=== PATIENT | male | born 1985 | race Caucasian/White ===

== ENCOUNTER 2016-12-15 15:22 | Emergency (ER) | payer SELFPAY ==
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
[2016-12-15] MEDS ORDERED: MORPHINE SULFATE 10 MG/ML INJ IV ONE (15:57)
[2016-12-15 16:51] VITALS: BP 131/65
== END 2016-12-15 16:42 | disposition home or self-care (01) ==
LOC: ER 15:22
DX: S52.502A Unspecified fracture of the lower end of left radius, initial encounter for closed fracture (principal); F17.200 Nicotine dependence, unspecified, uncomplicated; V86.99XA Unspecified occupant of other special all-terrain or other off-road motor vehicle injured in nontraffic accident, initial encounter
CPT/HCPCS: 99283; 96374; 73110; J2270